=== PATIENT | female | born 1970 | race Caucasian/White ===

== ENCOUNTER 2021-09-14 22:01 | Emergency (ER) | payer OTHER ==
[2021-09-14] MEDS ORDERED: ACETAMINOPHEN 325 MG TABLET (FP) PO ONE (22:19)
[2021-09-14 22:22] VITALS: BP 148/90; PULSE 92; TEMP 98.6; BMI 19.5
[2021-09-14] MEDS ORDERED: ACETAMINOPHEN 325 MG TABLET (FP) ONE (22:23)
== END 2021-09-14 23:26 | disposition home or self-care (01) ==
LOC: FER 22:01
DX: S93.402A Sprain of unspecified ligament of left ankle, initial encounter (principal); W19.XXXA Unspecified fall, initial encounter; Y92.9 Unspecified place or not applicable
CPT/HCPCS: 73610-TC-LT-FY; 99284-25